=== PATIENT | female | born 1930 | race Caucasian/White ===

== ENCOUNTER 2020-01-17 15:44 | Emergency (ER) | payer MEDICARE ==
--- NOTE | 2020-01-17 16:03 | ED.PDOC ---
History of Present Illness - General Time Seen by Provider: 01/17/20 15:55 Source: patient, RN notes reviewed, Vital Signs reviewed Exam Limitations: no limitations - History of Present Illness Initial Comments: Patient is an 89-year-old female with past medical history of hypertension who presents to ED with 1 week history of left upper arm pain. She denies any fall, trauma or injury to the area recently. States the pain right now is a 2/10, but sometimes it gets worse. She describes the pain as [id number] sensation to the left upper arm. States she feels it mostly to the posterior arm. It is no worse with palpation, movement or raising her arm above her head. She denies any chest pain, shortness of breath, nausea, fever, redness or swelling to the area or any rash. States she has not taken anything for the pain at home. Allergies/Adverse Reactions: Allergies Benzoin Allergy (Verified 01/17/20 16:23) Review of Systems - Review of Systems Constitutional: Denies: chills, fever, weakness EENTM: Denies: blurred vision, nose congestion, throat pain Respiratory: Denies: cough, short of breath Cardiology: Denies: chest pain, palpitations, syncope Gastrointestinal/Abdominal: Denies: abdominal pain, diarrhea, nausea, vomiting Musculoskeletal: States: see HPI. Denies: back pain, neck pain Skin: Denies: rash Neurological: Denies: headache, weakness All other Systems: Reviewed and Negative Family Medical History - Family History Mother Family History: Unknown Physical Exam - Physical Exam General Appearance: Alert, Comfortable, No apparent distress Neck: full range of motion, supple, other - No C, T, L spine tendderness Respiratory: chest non-tender, lungs clear, normal breath sounds, no respiratory distress Cardiovascular/Chest: regular rate, rhythm, no edema Gastrointestinal/Abdominal: non tender, soft Extremity: normal range of motion, non-tender Neurologic: no motor/sensory deficits, alert, normal mood/affect Skin Exam: normal color, warm/dry Comments: No tenderness or erythema to the left upper arm. There are no skin changes or warmth in this region. She has full range of motion in her left shoulder and elbow without increased pain. She has 2+ radial pulse and 5 out of 5 patent leather sorter strength. Cap refill is less than 2 seconds. Progress - Progress Progress: 01/17/20 17:55 Patient presented to ED with left upper arm pain that feels like [id number] for the past 5 days. She denies any chest pain, shortness of breath, fever. On exam. There is no tenderness to the left upper extremity. There is no erythema or edema. She has good distal pulses. She has full range of motion without pain. No sign of DVT or cellulitis or rash to the area. EKG, labs and imaging are reassuring. She has had elevated blood pressure in ED and has not taken her blood pressure medications today. Given IV hydralazine with improvement. She feels comfortable going home and I have asked her to follow-up with her PCP in 1 to 2 days for continued evaluation. Strict return precautions given. - Results/Orders Results/Orders: EKG NSR, rate 71, nml intervals, no ST abnormality CHEST XRAY EXAM DESCRIPTION: Chest,1 View CLINICAL HISTORY: 89 years Female, left arm pain COMPARISON: None. FINDINGS: One view/radiograph Heart size and pulmonary vessels are within normal limits. There is no pneumothorax or pleural effusion. The lungs are clear bilaterally. The soft tissues are unremarkable. No acute osseous findings. Surgical clips overlie the left chest. IMPRESSION: No acute cardiopulmonary abnormality. HUMERUS XRAY EXAM DESCRIPTION: Humerus,Left CLINICAL HISTORY: 89 years Female, left arm pain COMPARISON: None. Findings: Two view(s)/radiograph(s) Moderate acromioclavicular osteoarthritis. Narrowing of the subacromial space. Mild glenohumeral osteoarthritis. Osteopenia. No acute fracture or dislocation. No focal soft tissue swelling. IMPRESSION: No acute osseous abnormality identified in the left humerus. 01/17/20 16:00 EKG .ONCE Laboratory Results - last 24 hr 01/17/20 01/17/20 01/17/20 16:27 16:27 16:27 WBC 7.0 RBC 3.32 L Hgb 10.7 L Hct 31.3 L MCV 94.2 MCH 32.2 H MCHC 34.1 RDW 13.4 Plt Count 263 MPV 7.9 Absolute Neuts (auto) 3.80 Absolute Lymphs (auto) 2.30 Absolute Monos (auto) 0.70 Absolute Eos (auto) 0.10 Absolute Basos (auto) 0.10 Neutrophils % 54.5 Lymphocytes % 32.7 Monocytes % 10.0 H Eosinophils % 1.5 Basophils % 1.3 Sodium 137 Potassium 4.6 Chloride 105 Carbon Dioxide 23 Anion Gap 13.6 BUN 42 H Creatinine 1.33 H BUN/Creatinine Ratio 31.6 H Random Glucose 133 H Serum Osmolality 286.2 Calcium 9.4 Troponin I < 0.02 Departure - Departure Clinical Impression: Atypical chest pain, Left arm pain, Essential hypertension Time of Disposition: 17:57 Disposition: Discharge to Home or Self Care Condition: Good Instructions: High Blood Pressure (DC) Diet: resume usual diet Activity: increase activity as tolerated Referrals: Yayo Cuevas MD [Primary Care Provider] - 1-2 Days
[2020-01-17 16:16] VITALS: TEMP 96.8
--- NOTE | 2020-01-17 16:42 | RAD ---
EXAM DESCRIPTION: Chest,1 View CLINICAL HISTORY: 89 years Female, left arm pain COMPARISON: None. FINDINGS: One view/radiograph Heart size and pulmonary vessels are within normal limits. There is no pneumothorax or pleural effusion. The lungs are clear bilaterally. The soft tissues are unremarkable. No acute osseous findings. Surgical clips overlie the left chest. IMPRESSION: No acute cardiopulmonary abnormality. Electronically signed by: Gallo Phelan MD 01/17/2020 4:40 PM [facility]
--- NOTE | 2020-01-17 16:43 | RAD ---
EXAM DESCRIPTION: Humerus,Left CLINICAL HISTORY: 89 years Female, left arm pain COMPARISON: None. Findings: Two view(s)/radiograph(s) Moderate acromioclavicular osteoarthritis. Narrowing of the subacromial space. Mild glenohumeral osteoarthritis. Osteopenia. No acute fracture or dislocation. No focal soft tissue swelling. IMPRESSION: No acute osseous abnormality identified in the left humerus. Electronically signed by: Gallo Phelan MD 01/17/2020 4:42 PM [facility]
[2020-01-17 17:07] VITALS: O2SAT 96
[2020-01-17] MEDS ORDERED: hydrALAZINE HCl 20 MG/ML VIAL IV ONE (17:46)
[2020-01-17] MEDS ORDERED: HYDROcodone 5MG/APAP 325MG 1 EA TAB PO ONE (18:12)
[2020-01-17 18:22] VITALS: BP 182/94
== END 2020-01-17 18:20 | disposition home or self-care (01) ==
LOC: ER 15:44
DX: R07.89 Other chest pain (principal); M79.622 Pain in left upper arm; I10 Essential (primary) hypertension
CPT/HCPCS: 36415; 71045; 73060; 80048; 84484; 85025; 93005; J0360